=== PATIENT | male | born 1960 | race Caucasian/White ===

== ENCOUNTER 2017-10-12 11:37 | Day surgery (SDC) | payer BC ==
[~2017-10-12] VITALS: Ht 170.2 cm; Wt 72.1 kg
[~2017-10-12 11:37] MED LIST: BENADRYL25 MG PO; COMBIVENT RESPIM4 GM INH; FLUOCINOLONE AC15 G2 TOP; IBUPROFEN200 M1 PO; LEVOFLOXACIN750 MG PO; NYQUIL D COLD295 ML PO; PREDNISONE20 MG PO; PROVENTIL HFA6.7 GM INH; ZYRTEC10 MG PO
[2017-10-12] MEDS ORDERED: VITAMIN D32000 UNI1 PO (11:58)
[2017-10-12] MEDS ORDERED: LISINOPRIL-HCT1 EAC1 PO (11:58)
[2017-10-12] MEDS ORDERED: VITAMIN A8000 UNIT PO (11:59)
--- NOTE | 2017-10-12 16:16 | NUR ---
PT HAS REC'D WARMBLANKET AND UPDATED HRLY DURING PREOP. IV PATENT. STATES OK WITH WAIT. FAMILY IN ROOM.
--- NOTE | 2017-10-13 22:04 | OR ---
[facility] [address], [place] [address] Signed DATE OF OPERATION: 10/12/2017 SURGEON: Aminta Orozco MD PREOPERATIVE DIAGNOSIS: Known chronic hepatitis C and cirrhosis, occasional dysphagia and epigastric pain. POSTOPERATIVE DIAGNOSES: 1. Esophageal and proximal gastric varices. 2. Prepyloric small ulceration. 3. Duodenal erosions. 4. Low-grade stricture of distal esophagus. PROCEDURE: Esophagogastroduodenoscopy with biopsy. ANESTHESIA: Intravenous sedation fentanyl 100 mcg, Versed 4 mg. INDICATION: This 57-year-old man is known to have chronic hepatitis C, as well as cirrhosis, and occasional dysphagia. He is a patient of Dr. Wilberto Mata at the [facility], as well as Vicente DE LA TORRE locally. He is under consideration for treatment for hepatitis C. Upper endoscopy was requested to assess the extent of possible portal hypertension. Specifically to assess for varices. The patient additionally has some occasional dysphagia, but no actual reflux symptoms. He is admitted at this time to undergo upper endoscopy. He understands the risks of bleeding, infection, and perforation. FINDINGS: The patient had esophageal varices, considered likely grade 3. This included proximal gastric varices. He had no evidence of bleeding from that. There was a low-grade stricture of the distal esophagus, likely reflux related. Additionally, he had a pre-pyloric small ulcer and duodenal erosions. CLOtest was negative 15 minutes post procedure. There was no sign of large hiatal hernia by any means. The flap valve was somewhat poor, however. DESCRIPTION OF PROCEDURE: The patient was brought to the endoscopy suite, given topical Hurricaine spray, hypopharyngeal anesthesia and placed in lateral decubitus position. Given intravenous Electronically Signed By: AMINTA OROZCO MD 10/13/17 2204 PATIENT NAME: DARCI BEAULIEU OPERATIVE REPORT DATE OF : 64 REPORT #: [id number] PHYSICIAN: AMINTA OROZCO MD PCP: VICENTE LUIS REPORT IS CONFIDENTIAL AND NOT TO BE RELEASED WITHOUT AUTHORIZATION [facility] [address], [place] [address] Signed sedation to a point of slurred speech and nystagmus with full cardiopulmonary monitoring. The Olympus video upper endoscope was passed in the hypopharynx. The vocal cords were normal. The scope was advanced to the esophagus. [place] down the esophagus serpiginous varices were noted. There were not occluding the lumen by any means, but definitely extensive and progressively more so toward the esophagus. The scope was passed into the stomach, which was insufflated with air. There was no sign of bile and certainly no sign of blood. Excess gastric juices were suctioned free. The rugal folds appeared normal. Scope was advanced to the antrum and pylorus appeared normal. There was no prepyloric abnormality initially seen, but with further observation, a small prepyloric ulcer was seen. It was not deep. It was mostly edematous and with a small canker sore like appearance. The scope was passed through the pylorus into the duodenum. Duodenum had some mild edema, but no sign of ulcer, but there were erosive changes in the bulbar portion. Biopsies were taken of the third and bulbar portions. The scope was withdrawn to the antrum where biopsies were obtained. Retroflexed view was undertaken showing proximal gastric varices. There was no sign of large hiatal hernia, however. The scope was withdrawn to the distal esophagus and a low-grade stricture was noted. There was no sign of Chen's epithelium. Slightly more proximal to this were serpiginous congested esophageal varices, which diminished in size upon withdrawal of scope. Obviously no biopsies of the esophagus would be obtained in this setting. The scope was removed. The patient was taken to recovery room in good condition conclusion. CONCLUDING DIAGNOSES: 1. Grade 3 esophageal varices including proximal gastric varices. 2. Prepyloric ulceration. 3. Low-grade distal esophageal stricture, likely reflux related. PLAN: We will recommend Prilosec 20 mg p.o. daily. We will see him back in a month or so in the office and review his pathology report and so on. He will return additionally to the ongoing care of Vicente DE LA TORRE, and Wilberto Mata DO in the [facility]. MD SG Hudson/DHARAL /[id number] Electronically Signed By: AMINTA OROZCO MD 10/13/17 2204 PATIENT NAME: DARCI BEAULIEU OPERATIVE REPORT DATE OF : 64 REPORT #: [id number] PHYSICIAN: AMINTA OROZCO MD PCP: VICENTE LUIS REPORT IS CONFIDENTIAL AND NOT TO BE RELEASED WITHOUT AUTHORIZATION [address] [address] Signed cc: WIL Fuller DO Copies: VICENTE LUIS BRIAN J DO ~ Electronically Signed By: AMINTA OROZCO MD 10/13/17 2204 PATIENT NAME: DARCI BEAULIEU OPERATIVE REPORT DATE OF : 64 REPORT #: [id number] PHYSICIAN: AMINTA OROZCO MD PCP: VICENTE LUIS REPORT IS CONFIDENTIAL AND NOT TO BE RELEASED WITHOUT AUTHORIZATION
== END 2017-10-12 17:40 | disposition home or self-care (01) ==
LOC: OPS 11:37 → DS 11:37 → OPS 13:00 → DS 13:00 → OPS 14:00
PROVIDERS: Surgery
PROC: 0DB78ZX Excision of Stomach, Pylorus, Via Natural or Artificial Opening Endoscopic, Diagnostic (ICD-10-PCS; 2017-10-12)
PROC: 0DB98ZX Excision of Duodenum, Via Natural or Artificial Opening Endoscopic, Diagnostic (ICD-10-PCS; principal; 2017-10-12 14:00)
DX: K25.9 Gastric ulcer, unspecified as acute or chronic, without hemorrhage or perforation (principal); K29.80 Duodenitis without bleeding; K74.60 Unspecified cirrhosis of liver; K22.2 Esophageal obstruction; I85.10 Secondary esophageal varices without bleeding; B18.2 Chronic viral hepatitis C; I10 Essential (primary) hypertension; F19.21 Other psychoactive substance dependence, in remission; L81.8 Other specified disorders of pigmentation; Z79.899 Other long term (current) drug therapy; Z87.891 Personal history of nicotine dependence
CPT/HCPCS: 99153; G0500; J2250; J3010

== ENCOUNTER 2020-10-27 19:22 | Emergency (ER) | payer BC ==
[~2020-10-27] VITALS: Ht 170.2 cm; Wt 82.5 kg
[~2020-10-27 19:22] MED LIST changes: +LISINOPRIL-HCT1 EAC1 PO; +VITAMIN A8000 UNIT PO; +VITAMIN D32000 UNI1 PO
[2020-10-27] MEDS ORDERED: NAPROXEN500 MG PO (19:42)
[2020-10-27] MEDS ORDERED: AMLODIPINE BESYL5 MG PO (19:42)
[2020-10-27] MEDS ORDERED: PRAVASTATIN SOD20 MG PO (19:43)
== END 2020-10-27 21:38 | disposition home or self-care (01) ==
LOC: ED 19:22
DX: F10.129 Alcohol abuse with intoxication, unspecified (principal); I10 Essential (primary) hypertension; D75.89 Other specified diseases of blood and blood-forming organs; R74.01 Elevation of levels of liver transaminase levels; Z87.891 Personal history of nicotine dependence; Z79.899 Other long term (current) drug therapy; Y90.8 Blood alcohol level of 240 mg/100 ml or more
CPT/HCPCS: 80053; 81001; 85025; 99284; G0480

== ENCOUNTER 2021-05-23 01:42 | Inpatient (IN) | payer BC ==
[~2021-05-23] VITALS: Ht 170.2 cm; Wt 83.9 kg
[~2021-05-23 01:42] MED LIST changes: +AMLODIPINE BESYL5 MG PO; +NAPROXEN500 MG PO; +PRAVASTATIN SOD20 MG PO
--- NOTE | 2021-05-23 04:07 | NUR ---
PT ARRIVED TO THE FLOOR IN NO ACUTE DISTRESS. PT REPORTS FEELING BETTER AFTER HAVING 2 UNITS OF BLOOD . PT REMAINS TACHICARDIC IN THE 114, BP 137/73. PT RESP EVEN AND UNLABORED. DENIES ANY ACUTE DISTRESS. ORIENTED TO ROOM AND EDUCATED ON THE IMPORTANCE OF USING CALL LIGHT DT LINES. PT VERBALIZED UNDERSTANDING. WILL CONTINUE TO MONITOR.
--- NOTE | 2021-05-23 06:05 | NUR ---
INFORMED PT THAT HE HAS ANOTHER ORDER FOR PRBC. PT AGREEABLE TO ORDER. PT NAUSEA AND VOMITING. EMESIS BAG IN HAND. STARTED BLOOD AT 0610 NO S/S XOF ANY REACTIONS AT THIS TIME. RESP EVFEN AND UNLABORED. CALL LIGHT WITHIN REACH.
--- NOTE | 2021-05-23 07:31 | NUR ---
IN PATIENT'S ROOM QUICKLY DUE TO HIM VOMITING. PRN ZOFRAN GIVEN THROUGH CENTRAL LINE. PT HAD SMALL EMESIS. HR UP TO 130s DURING THIS. PT NOW RESTING ON LEFT SIDE IN BED. BLOOD ADMINISTERING AT 150 ML/HR INTO CENTRAL LINE IN RIGHT NECK IJ III. LAST BP 135/88. HR NOW 100s WHILE RESTING. NS ALSO INFUSING 125 ML/HR AT THIS TIME. CALL LIGHT WITHIN REACH. WILL CONTINUE TO MONITOR.
--- NOTE | 2021-05-23 07:50 | NUR ---
DR. GONZALEZ IN ROOM TO SEE PATIENT. PT RECEIVING 3RD UNIT OF PRBC AT THIS TIME.
[2021-05-23] MEDS ORDERED: ASPIRIN81 MG PO (07:57)
[2021-05-23] MEDS ORDERED: IBUPROFEN200 M1 PO (07:58)
--- NOTE | 2021-05-23 08:34 | NUR ---
PATIENT TO RECEIVE 4TH UNIT OF PRBCs, 1 UNIT OF FFP, AND 1 UNIT OF PLATELETS.
--- NOTE | 2021-05-23 09:54 | NUR ---
PATIENT TAKEN DOWN TO GI SUITE FOR UPPER ENDOSCOPY AT 0952. PT STARTED ON UNIT OF FFP AT 108 ML/HR FOR 30 ML, WHICH WILL TAKE 15 MINUTES, CONNECTED TO TRIPLE LUMEN CENTRAL LINE. PT STILL RECEIVING 4TH UNIT OF PRBCs. CBC DUE AT 1200.
--- NOTE | 2021-05-23 09:59 | NUR ---
CENTRAL LINE WAS NOTED TO BE TOO FAR ADVANCED ON CHEST XRAY PER DR. ROTH. REQUESTED BY HIM TO PULL BACK CENTRAL LINE APPROX 3 CM. SUTURE HAD TO BE REMOVED FOR THIS TO HAPPEN, AND THEN IT WAS PULLED BACK 3 CM, AND RESECURED WITH A STAT LOCK, AND NEW CENTRAL LINE DRESSING WAS APPLIED. CHEST XRAY WAS DONE AND DR. ROTH VISUALIZES AT THE BEDSIDE.
--- NOTE | 2021-05-23 10:34 | NUR ---
PATIENT RETURNS FROM UPPER ENDOSCOPY AT 1020 WITH ENGINEER THIRD ASSISTANT AND PACU STAFF. 4TH UNIT OF PRBCs FINISHED AT 1015. FFP IS NOW INFUSING AND RATE INCREASED TO 200 ML/HR. PT STARTING TO ITCH, AND ORDER REC'D FROM ENGINEER THIRD ASSISTANT TO GIVE 25-50 MG X 1 FOR ITCHING.
--- NOTE | 2021-05-23 11:06 | NUR ---
PATIENT RETURNED FROM GI SCOPE AND STARTED TO FAIRLY QUICKLY DEVELOP ITCHING. THIS ITCHING BECAME SYSTEMIC, WITH REDNESS APPEARING SIGNIFICATNLY THROUGHOUT BODY, ON TORSO, ON LEGS, WITH HIVES APPREARING ALSO. PT DENIES HAVING ANY TROUBLE BREATHING. SP02 IS 97% ON ROOM AIR. PT IS AWAKE AND CONVERSING WITH STAFF. TEMP IS 98.6 AT THIS TIME. FFP WAS STOPPED WHEN ITCHING BECAME SEVERE. LUZ MARIA BAUER WAS STILL IN UNIT AND ORDER REC'D TO GIVE 25-50 MG IV BENADRYL. THIS WAS GIVEN- SEE EMAR. DR. ROTH THEN IN ROOM AND TALKING WITH RESULTS OF GI SCOPE TO PT'S SON AND PATIENT. ITCHING RESUMED AND WAS OF STILL SEVERE GRADE, AND DR. ROTH GAVE VERBAL ORDER FOR SOLUMEDROL, 80 MG IV TO BE GIVEN NOW. PT'S SON REMAINS IN ROOM. WILL CONTINUE TO MONITOR.
--- NOTE | 2021-05-23 11:21 | NUR ---
DR. GONZALEZ IN ROOM TO SEE PATIENT AT THIS TIME.
--- NOTE | 2021-05-23 11:45 | NUR ---
DISCUSSED WITH LAB THE PROCEDURES TO FOLLOW REGARDING TESTING THE BLOOD PRODUCTS THAT PATIENT RECEIVED TO RULE OUT TRANSFUSION REACTION. LAB REQUESTING A PINK, YELLOW, AND LAVENDAR TOP VIAL OF BLOOD, WELL A URINE SAMPLE.WILL COLLECT THESE THINGS WHEN ABLE TO. 1200 SCHEDULED TIME OF BLOOD DRAW TO BE COLLECTED NOW.
--- NOTE | 2021-05-23 13:25 | NUR ---
Spoke with pt and his son, Nik and Bertha. Pt lives alone in house in [place]. 2 steps, no issues getting in or out of house. Pt currently works at [employer]. He is drinking prep for a colonoscopy. He and son, Nik, have just completed a POA with a traveling notary. Pt denies needs at home. Not feeling well and is nauseated from prep. Salty follow up with pt tomorrow. Copy of POA made for medical records.
--- NOTE | 2021-05-23 13:43 | NUR ---
PATIENT UP TO BSC TO HAVE A BM AND VOID URGENTLY . PT HAS STARTED BOWEL PREP OF MIRALAX BUT DOES REPORT NAUSEA PERSISTING. PT HAD SMALL EMESIS WHILE UP ON COMMODE, WHICH REMAINS CLEAR/LIGHT GREEN IN COLOR WITH NO SIGNS OF BLOOD. PT VOIDS AND HAS BURGUNGY CLOTTY STOOL WITH FOUL SMELL. PT DOES ENDORSE THAT HE FEELS A LITTLE WEAKER THAN BEFORE. CBC VALUES GONE OVER WITH PATIENT AND HIS SON. BP ELEVATED 172/99. DR. GONZALEZ CALLED AND UDPATED. ORDERS REC'D TO GIVE 10 MG IV LASIX, GIVE 50 MG IV BENADRYL ONCE NOW BEFORE PLATELETS, AND GIVE THE UNIT OF PLATELETS THAT IS READY FOR HIM. WILL CONTINUE TO MONITOR CLOSELY. CALL LIGHT WITHIN REACH.
--- NOTE | 2021-05-23 13:55 | NUR ---
PLATLETES HUNG PER ORDERS. BENADRYL 50 MG GIVEN PRIOR TO PLATLETS. LASIX 10 MG IV ALSO GIVEN PER ORDERS.
--- NOTE | 2021-05-23 14:47 | NUR ---
VITALS CHARTED. FAMILY IN ROOM. FAMILY ASKING QUESTIONS REGUARDING THE AMOUT OF BLOOD PATIENT HAS LOST AND IS RECEIVING, RN NOTIFIED AND WILL ADDRESS QUESTIONS WITH FAMILY. CALL LIGHT IN EASY REACH
--- NOTE | 2021-05-23 17:27 | NUR ---
PATIENT CONTINUES TO BE UP AND DOWN TO COMMODE FREQUENTLY. PT HAS ALMOST FINISHED 2ND BOTTLE OF MIRALAX BOWEL PREP. CBC DUE AT 1800 ALONG WITH MAG LEVEL. CONTINUE TO MONITOR.
--- NOTE | 2021-05-23 19:30 | NUR ---
RECEIVED REPORTS FROM DAY SHIFT RN . PT LAYING IN BED IN NO ACUTE DISTRESS. REPORTS FEELING BETTER . DENIES ANY PAIN AT THIS TIME. RESP EVEN AND UNLABORED. CALL LIGHT WITHIN REACH. VISITING WITH SON WILL CONTINUE TO MONITOR.
--- NOTE | 2021-05-23 20:37 | NUR ---
pt needed to have a bm. pt has finished drinking his bowel prep. pt verbalized understanding that he cannot have anything else by mouth after midnight because he has a procedure in the morning. pt up to commode with stand by assist, had about 200ml of stool mixed with 100ml urine. pt able to get self back to bed without assistance.
--- NOTE | 2021-05-23 20:59 | EKG ---
[facility] [address] [facility] [place], [place] [address] Signed Sinus tachycardia Otherwise normal ECG No previous ECGs available Confirmed by MAIRA GONZALEZ MD ([id number]) on 05/23/2021 8:59:00 PM Electronically Signed By: MAIRA GONZALEZ MD 05/23/212058 PATIENT NAME: DARCI BEAULIEU Electrocardiogram DATE OF : 64 PHYSICIAN: MAIRA GONZALEZ MD REPORT #: [id number] REPORT IS CONFIDENTIAL AND NOT TO BE RELEASED WITHOUT AUTHORIZATION
--- NOTE | 2021-05-23 21:32 | NUR ---
PT'S SON STATES PT NEEDS TO GO TO THE BATHROOM PT TRYING TO GET OUT OF BE HIMSELF. THIS RN IN ROOM AND ASSISTED PT TO BEDSIDE COMMODE. PT STATES "I THINKI GOT IT EVERY WHERE I FELT IT" HIS ATTENDS ARE SLIGHTLY WET FROM URIAND SOME LIQUID STOOL BUT HIS BEDDING IS CLEAN. EMPTIED COMMODE 100 ML OF URINE MIXED WITH SOME LIQUID STOOL. DOES NOT APPEAR TO BE RED IN NATURE. PT ABLE TO WIPE SLEF AND ASSISTED HIM WITH NEW ATTENDS, PT BACK TO BED. SON IN ROOM
--- NOTE | 2021-05-23 23:10 | NUR ---
ASSISTED PT TO BSC VIA SBA
--- NOTE | 2021-05-24 02:00 | NUR ---
PT SLEEPING IN BED IN NO ACUTE DISTRESS. PT RESP EVEN AND UNLABORED. VSS CALL LIGHT WITHIN REACH WILL CONTINUE TO MONITOR/
--- NOTE | 2021-05-24 04:00 | NUR ---
PT SLEEPING IN BED IN NO ACUTE DISTRESS. VSS RESP EVEN AND UNLABORED. CALL LIGHT WITHIN REACH WILL CONTINUE TO MONITOR.
--- NOTE | 2021-05-24 06:01 | CONS ---
[facility] [address], [place] [address] Signed DATE OF CONSULTATION: 05/23/2021 CHIEF COMPLAINT: Bloody diarrhea. HISTORY OF PRESENT ILLNESS: Darci is a 60-year-old gentleman, who is known to have a long history of daily alcohol use and hepatitis C. In 2018, he underwent his upper endoscopy and was found to have proximal gastric and distal esophageal varices probably grade 3 with a shallow pre-pyloric ulcer and possibly a slight distal esophageal stricture. This was done by Dr. Jones. He was then treated by Dr. Wilberto Mata at our [facility] for his hepatitis C virus, he said that was cured. He tells me he has never been to an actual liver specialist/art critic or dispensing operator. In the meantime, he continues to work at a local [employer]. He is using significant amounts of daily aspirin as well as ibuprofen. He is also drinking at least 324-ounce beers every day. He does not smoke. He had at least three days of dark stool and then quite a bit of voluminous bloody diarrhea. He came to the emergency room for evaluation. He received tranexamic acid along with 4 units of packed red blood cells and right IJ was placed by our ER physician. The followup chest x-ray shows the tip of the right IJ in the atrium, it has not been pulled back currently. Therefore, we are going to do that momentarily and repeat the chest x-ray. He has been admitted to the Internal Medicine Service in the ICU. He has vomited several times here in the ICU and thankfully it has all been clear fluid. Initially, he was hypotensive, but responded well to his IV fluids and blood transfusions. He is still tachycardic, but overall seems to be hemodynamically stable. Although, his albumin is little low, his liver function test and INR really are particularly elevated. Although, he did have alcohol on board when he got here. PAST MEDICAL HISTORY: Diverticulosis, small hiatal hernia, cirrhosis with esophageal varices, hypertension, seasonal allergies, and prior history of hepatitis C virus. PAST SURGICAL HISTORY: Includes facial plastic surgeries, tonsils, umbilical hernia x2 as a young baby, upper endoscopy in [address] Jones showing the shallow pre-pyloric ulcer along with esophageal and proximal gastric varices and possibly a small distal esophageal stricture. SOCIAL HISTORY: He does not smoke, but he drinks at least 324 ounce beers a day. His son Mj is at [phone] and he has a daughter who was just on the phone. Actually, Jennifer is his nurse practitioner. He prefers the [facility]. Dr. Wilberto Mata, he is the infectious disease doctor, who treated his hepatitis C virus in 2018. Electronically Signed By: TRENT ROTH MD 05/24/21 0601 PATIENT NAME: DARCI BEAULIEU CONSULTATION DATE OF : 64 REPORT #: [id number] PHYSICIAN: TRENT ROTH MD PCP: KEYANNA KIM MD REPORT IS CONFIDENTIAL AND NOT TO BE RELEASED WITHOUT AUTHORIZATION [address] [address] Signed FAMILY HISTORY: None. REVIEW OF SYSTEMS: None. ALLERGIES: None. MEDICATIONS: 1. Lisinopril/hydrochlorothiazide (20/25) one tablet p.o. daily. 2. Amlodipine 5 mg p.o. daily. PHYSICAL EXAMINATION: VITAL SIGNS: Blood pressure 139/78, heart rate 106, respiratory rate 11, and temperature is 98.1, and he is 97% on 2 L nasal cannula. He is 5 feet 7 inches, 83 kg. GENERAL: Darci is a 60-year-old gentleman, lying supine in his ICU bed. He does not appear jaundiced. He is little thin with a protuberant abdomen. LUNGS: Generally clear to auscultation bilaterally. HEART: Tachycardic, without murmurs. ABDOMEN: Moderately protuberant, but generally soft and nontender. I cannot appreciate the liver edge. He has surgical scars around the umbilicus with a possible small recurrent umbilical hernia. RECTAL: Not repeated. LABORATORY DATA: His initial white blood cell count was 11.6, it is now 8.6; his initial hemoglobin was 7.8, it is now 8.3, although I am not sure how many units he received in between; his mean cell volume is 105, it is now 98; and platelets were 221, down to 145. His BUN is 15, his creatinine is 1.4, and glucose 173. COVID negative. INR is 1.17. Total bilirubin 0.6, AST 87, ALT 36, alkaline phosphatase 196, albumin is 2.4. His alcohol was 276. Calcium is 7.7. RADIOGRAPHIC STUDIES: EKG showed sinus tachycardia. The chest x-rays reviewed and sure enough the tip of the central venous catheter is in his right atrium, no obvious pneumothorax. CT scan of abdomen and pelvis shows a nodular liver with multiple calcified gallstones and a small hiatal hernia with some sigmoid diverticulosis. His spleen does not appear particularly enlarged, no comment on varices. ASSESSMENT AND PLAN: Darci is a 60-year-old gentleman, who presents with gastrointestinal bleed anemia with aspirin and ibuprofen on board along with a known history of cirrhosis and esophageal and proximal gastric varices. I reviewed with Darci the above findings. I explained to Electronically Signed By: TRENT ROTH MD 05/24/21 0601 PATIENT NAME: DARCI BEAULIEU CONSULTATION DATE OF : 64 REPORT #: [id number] PHYSICIAN: TRENT ROTH MD PCP: KEYANNA KIM MD REPORT IS CONFIDENTIAL AND NOT TO BE RELEASED WITHOUT AUTHORIZATION [facility] [address], [place] [address] Signed him that this is a very serious situation. He is going to receive additional packed red blood cells and fresh frozen plasma. We have ordered platelets, but it will take 6-8 hours to get here. There is a possibility he would need to be transferred to our tertiary referral center. He told me he would not drink following this episode. I reviewed upper endoscopy with him, he remembers that quite well. He understands there is risk including, but not limited to gas bloating, crampy abdominal pain, bleeding, perforation requiring surgery, and missed diagnosis. We have also reviewed the idea of Interventional Radiology and embolization of arteries. He is at very high risk for any abdominal surgeries, particularly at our small hospital. He is also aware that he really should see one of the liver specialists at our medical school to be fully evaluated and establish a baseline and establish with a dispensing operator out in [facility]. We also reviewed the idea of banding esophageal varices. He has expressed understanding, would like to proceed with this endoscopy. Trent Roth MD ALB/MODL /[id number] cc: MD Linda Cano DO Patient's Chart Copies: TRENT ROTH MD, BRIAN J DO ~ Electronically Signed By: TRENT ROTH MD 05/24/21 0601 PATIENT NAME: DARCI BEAULIEU CONSULTATION DATE OF : 64 REPORT #: [id number] PHYSICIAN: TRENT ROTH MD PCP: KEYANNA KIM MD REPORT IS CONFIDENTIAL AND NOT TO BE RELEASED WITHOUT AUTHORIZATION
--- NOTE | 2021-05-24 06:01 | OR ---
[facility] [address] [place], [place] [address] Signed DATE OF OPERATION: 05/23/2021 SURGEON: Trent Roth MD PREOPERATIVE DIAGNOSES: 1. Gastrointestinal bleed. 2. Anemia. 3. Bloody diarrhea. 4. 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 5. History of treated hepatitis C virus in 2018. 6. Daily alcohol use. POSTOPERATIVE DIAGNOSES: 1. Mild diffuse gastritis. 2. Small hiatal hernia. 3. Moderate-sized nonbleeding proximal gastric and esophageal varices up to mid esophagus. 4. Distal esophagitis. PROCEDURE: Esophagogastroduodenoscopy without biopsy. ESTIMATED BLOOD LOSS: None. INDICATIONS: Darci is a 60-year-old gentleman, who back in 2018 underwent upper endoscopy with Dr. Jones. He was said to have proximal gastric varices along with distal esophageal varices, probably grade 3. Question whether or not he had a pre-pyloric shallow ulcer. Probably, he had some decreased function to the lower esophageal sphincter, but no obvious hiatal hernia. He followed up with Dr. Wilberto Hooker for treatment of his hepatitis C virus, that is now undetectable. However, he says he has never seen a liver specialist and has not gone back for any banding. He presented to the emergency room with several days of dark stool, followed by bloody diarrhea. He has been using a lot of aspirin and ibuprofen because of various aches and pains. In the emergency room, he received tranexamic acid along with 4 units of packed red blood cells and right internal jugular catheter was placed per the ER doctor, that was in the right atrium, so it has been pulled back 3 cm and appears to be in much better position. He has been in the ICU since around 0300 and 0330 this morning. Internal Medicine Service has been working to resuscitate him. He has vomited a few times, mainly his clear gastric fluid. He seems Electronically Signed By: TRENT ROTH MD 05/24/21 0601 PATIENT NAME: DARCI BEAULIEU OPERATIVE REPORT DATE OF : 64 REPORT #: [id number] PHYSICIAN: TRENT ROTH MD PCP: KEYANNA KIM MD REPORT IS CONFIDENTIAL AND NOT TO BE RELEASED WITHOUT AUTHORIZATION [facility] [address] [place] [id number] Signed to have a fairly sensitive gag reflex. I have been asked to see him as a general surgeon on-call. The CT scan again confirmed that he has a nodular liver with multiple gallstones and a small hiatal hernia. He does have diverticulosis in his colon, it does not appear to be severe. Liver function tests were not particularly elevated. Albumin is a little bit low at 2.4 and his INR is 1.17. His alcohol level is 276. EKG showed sinus tachycardia. BUN was not elevated at 15, but the creatinine is 1.8, mean cell volume was 105 with hemoglobin of 7.8, it is now 8.3, I am not sure how many units of blood he received, in between there was blood draws. This morning, I received a phone call from our Internal Medicine Service, I have left my office and went straight to the ICU. Darci seems to be a little anxious, but otherwise seems to be hemodynamically stable other than some mild sinus tachycardia. The heart is unremarkable without murmurs and the abdomen is moderately protuberant without fluid wave and I cannot appreciate the liver edge. I explained to Darci we needed to repeat the upper endoscopy expeditiously. If that were negative, we will consider a bowel prep and colonoscopy the next day. He has never had a previous colonoscopy. I reviewed with him upper endoscopy in detail. We reviewed cirrhosis of liver and varices along with an alcohol intake and the aspirin and ibuprofen. I made him aware of esophageal variceal banding. He is aware that is not available at our hospital. In the meantime, he is also receiving some plasma. Platelets have been ordered as well, that will take 6-8 hours to get here. He understands he is in a very serious situation. He did give me permission to talk to his son, Mj, who is aware of the situation. He said his own mother just in March of this year from similar conditions. Darci understands there is risk including, but not limited to gas bloating, crampy abdominal pain, bleeding, perforation requiring surgery, and missed diagnosis. He had expressed understanding and wished to proceed. Given the significant acuity of his situation, we asked for monitored anesthesia care. He had expressed understanding and wished to proceed. DESCRIPTION OF PROCEDURE: Darci was taken into our endoscopy suite and placed in the supine semi-recumbent position. He was placed under monitored anesthesia care with propofol per our nurse window shade cutter. His bottom tooth was loose, but thankfully that remained in place. We did utilize a bite block. The adult gastroscope was introduced and advanced into the third portion of the duodenum. The duodenum and pyloric channel were unremarkable. The stomach showed mild diffuse erythematous changes. We did not perform any biopsies. He did have a CLOtest in 2018, but I am not aware of that result currently. Upon retroflexion of scope, he does have a small hiatal hernia. I could see the proximal gastric varices. There were no blood wipes whatsoever in the stomach or duodenum. The scope was withdrawn up through the area of the GE junction, which was compliant without any obvious stricture. He clearly has moderate-sized varices of the esophagus extending up to his mid esophagus. The proximal esophagus unremarkable. Just above the Z-line, he has a couple areas of irritation from his esophagitis, this sounds very similar to what he had in 2018, when I can tell he is not on any medication for stomach. After Electronically Signed By: TRENT ROTH MD 05/24/21 06 PATIENT NAME: DARCI BEAULIEU OPERATIVE REPORT DATE OF : 64 REPORT #: [id number] PHYSICIAN: TRENT ROTH MD PCP: KEYANNA KIM MD REPORT IS CONFIDENTIAL AND NOT TO BE RELEASED WITHOUT AUTHORIZATION [facility] [address] [place] [id number] Signed this, the gas was suctioned out and the gastroscope removed. Darci tolerated the procedure quite well. RECOMMENDATIONS: Darci will be returned to his ICU bed on the Internal Medicine service. Hopefully, he can tolerate clear liquids today and along with his bowel prep. We will plan on doing a colonoscopy tomorrow. Trent Roth MD ALB/MODL /[id number] cc: Patient's Chart DO Linda Mayo MD Copies: WILBERTO HOOKER ANDREW L MD ~ Electronically Signed By: TRENT ROTH MD 05/24/21 0601 PATIENT NAME: DARCI BEAULIEU ALAN OPERATIVE REPORT DATE OF : 64 REPORT #: [id number] PHYSICIAN: TRENT ROTH MD PCP: KEYANNA KIM MD REPORT IS CONFIDENTIAL AND NOT TO BE RELEASED WITHOUT AUTHORIZATION
--- NOTE | 2021-05-24 07:44 | NUR ---
VITALS AND I&OS CHARTED. RN IN FOR MORNING ASSESSMENT. CALL LIGHT IN REACH
--- NOTE | 2021-05-24 07:50 | NUR ---
PATIENT RESTING IN BED AT THIS TIME. IVF CONTINUE AT 100 ML/HR. PLAN OF CARE DISCUSSED FOR THE DAY AND PLAN MOVING FORWARD. PT WILL HAVE LOWER SCOPE TODAY LATER THIS AM. CONTINUE TO MONITOR.
--- NOTE | 2021-05-24 08:55 | NUR ---
Spoke with Benito, he will have a cspope this morning. He states he is feeling better. He is interested in Vivi visiting for his alcoholism. I will contact and schedule for an afternoon appt. so he is awake following scope.
--- NOTE | 2021-05-24 10:32 | NUR ---
PATIENT READY TO GO DOWN FOR LOWER SCOPE.
--- NOTE | 2021-05-24 11:04 | NUR ---
Called and spoke with Yen summers [facility], they will visit at 3 pm today.
--- NOTE | 2021-05-24 11:18 | NUR ---
05/24/21 1118 Nisreen Membreno NO PACU TIME CHARGED
--- NOTE | 2021-05-24 11:24 | NUR ---
PATIENT ARRIVES FROM GI SUITE AT 1115 AFTER HAVING INCREASED BLEEDING PER RECTUM AND ALSO COFFEE GROUND EMESIS FROM HIS ORAL AIRWAY PER GOLF TEACHER. LARGE MELENA WITH CLOTS CLEANED OFF OF PATIENT WHICH WEIGHED 330 G=330 ML. CBC SENT STAT. 2 UNITS TO BE GIVEN RAPIDLY AT THIS TIME.
--- NOTE | 2021-05-24 12:04 | NUR ---
BLOOD SUGAR 196, INSULIN DRIP NOT TITRATED AT THIS TIME. PT UP TO BSC AND BACK IN BED. ASSESSEMENT COMPLERTED. CALL LIGHT WITHIN REACH. WILL CONTINUE TO MONITOR.
--- NOTE | 2021-05-24 12:34 | NUR ---
PATIENT ON PHONE WITH SEVERAL FAMILY MEMBERS UPDATING THEM ON HIS RECURRENT BLEEDING. PATIENT VERY SCARED, AND ASKING VERY RELEVANT QUESTIONS REGARDING HIS CARE, HIS BLEEDING, HIS BODY. DISCUSSED WITH PATIENT PLAN OF CARE MOVING FORWARD FOR HIS TRANSFER TO ANOTHER FACILITY.
--- NOTE | 2021-05-24 12:36 | NUR ---
2ND UNIT OF PRBCs IS INFUSING AND GOING AT THIS TIME AT 500 ML/HR. PT TOLERATING WELL. FFP STARTED NOW WELL. ALL BLOOD INFUSING INTO RIGHT IJ.
--- NOTE | 2021-05-24 12:51 | NUR ---
FFP NOW INFUSING AT 250 ML/HR. 2ND UNIT OF PRBCs ALMOST FINISHED AND HAS BEEN INFUSING AT 500 ML/HR. PT HAS BEEN TOLERATING WELL W/O ANY SIGNS OF REACTION, NO ITCHING, NO REDNESS. WILL DISCUSS WITH MD DOING A CBC AFTER AND SEEING ABOUT MORE UNITS OF BLOOD IF NEEDED TO BE GIVEN. CONTINUE TO MONITOR CLOSELY.
[2021-05-24] MEDS ORDERED: PROTONIX IV40 MG IV (13:13)
--- NOTE | 2021-05-24 13:20 | NUR ---
PATIENT READY TO TRANSFER TO [facility] IN [place], ID. PT'S DAUGHTER IN [employer] IN ROOM AND TAKES PATIENT'S PERSONAL BELONGINGS WITH HER. PT FINISHING UNIT OF FFP. OTHER 2 UNITS OF BLOOD ARE NOW PREPARED TO GO WITH PATIENT TO [place]. VITALS REMAIN STABLE.
--- NOTE | 2021-05-24 14:23 | NUR ---
CHECKING ON PT-CCU STAFF INFORMED ME THAT PT IS TO BE LIFEFLIGHTED TO [facility]. WILL FOLLOW NEEDED
--- NOTE | 2021-05-24 14:53 | NUR ---
REPORT GIVEN TO NYDIA TALLEY AT [facility] IN [place]. ALL QUESTIONS ANSWERED BEST POSSIBLE.
--- NOTE | 2021-05-25 08:08 | OR ---
[facility] [address] [place], [place] [address] Signed DATE OF OPERATION: 05/24/2021 SURGEON: Trent Roth MD PREOPERATIVE DIAGNOSES: 1. GI bleed. 2. Anemia. 3. Bloody diarrhea. 4. Diverticulosis. 5. 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 POSTOPERATIVE DIAGNOSES: 1. Moderate sigmoid diverticulosis. 2. Copious amounts of red and maroon-colored blood in the left colon. 3. A small amount of hematemesis probably from his loose lower front tooth, but also some blood from his nares. PROCEDURE: Colonoscopy without biopsy up to 60 cm (blood). ESTIMATED BLOOD LOSS: None. INDICATIONS: Darci is a 60-year-old gentleman, who has a known history of cirrhosis of the liver with esophageal varices from 2018. He was treated for the hepatitis C virus by his infectious disease specialists and that is now undetectable. He has continued to drink on a daily basis at least 324 ounce beers a day. Apparently, his ex- just in March of this year from cirrhosis of her liver. Darci was having dark stool for a few days, followed by bloody diarrhea. He came to our emergency room for evaluation. In the meantime, he has received 4 units packed red blood cells, fresh frozen plasma, and a pack of platelets. He also has a right internal jugular catheter. He had undergone a CT scan. He certainly has some diverticulosis as well. We did his upper endoscopy yesterday and he indeed has some mild diffuse gastritis with the proximal gastric varices as well as a distal esophageal varices extending up into the mid esophagus. It is very similar to what he had 2018. There was no blood whatsoever in his esophagus or stomach. No recent stigmata of any bleeding in the stomach. He does have some distal esophagitis again consistent with what he had in 2018. Unfortunately, he was also taking a lot of aspirin and ibuprofen. He had responded nicely to his resuscitation yesterday and therefore went through his bowel prep and did actually quite well. This Electronically Signed By: TRENT ROTH MD 05/25/2108 PATIENT NAME: DARCI BEAULIEU OPERATIVE REPORT DATE OF : 64 REPORT #: [id number] PHYSICIAN: TRENT ROTH MD PCP: KEYANNA KIM MD REPORT IS CONFIDENTIAL AND NOT TO BE RELEASED WITHOUT AUTHORIZATION [facility] [address] [place] [id number] Signed morning, he seemed to be doing quite well when I saw him. We added him on the follow for his colonoscopy. He has never had a previous colonoscopy. I did review that with him in detail. He understands the nature of that test along with the risks including, but not limited to gas bloating, crampy abdominal pain, bleeding, perforation requiring surgery, and missed diagnosis. He also understands the need for monitored anesthesia care. He also understands this is a very serious situation that he is in, and he is quite aware that his ex- just . I have also spoken to both of his sons, Mj and Ray. He had expressed understanding and wished to proceed. PROCEDURE NOTE: Darci was taken into our endoscopy suite and placed in the left lateral decubitus position. He was given monitored anesthesia care with propofol per our nurse front desk officer. A digital rectal exam was performed and he did have a maroon-colored blood. He had good sphincter tone. His prostate is very indurated, but somewhat flat and something that might be evaluated more thoroughly in due time. The adult colonoscope had been introduced and we had to irrigate the rectum a bit and get through some of the blood. We made our way up the sigmoid colon to about 60 cm into the left colon. He does have diverticula. They were moderate in size, moderate in number, and scattered about. He had mostly maroon liquid stool with some clotted blood as well. Even with irrigation and several minutes of examining this area at 60 cm, we never could find a lumen and therefore we could not pass the scope safely any further. About that time, he had some blood around his mouth and a little bit out of his nares. We know he has a loose tooth on the bottom of his in the front mandible. There was a little bit of blood around that tooth, and we noted he was hypotensive. We therefore had to stop his propofol and let him wake up. We brought him back down to our ICU. I have spoken to the hospitalist service. Our supervisor dry cleaning is with us as well. We are going to be looking for a tertiary referral center with significant more capabilities than what we have at our [facility]. In the meantime, I will be calling his son Ray as well. Trent Roth MD ALB/DHARAL /[id number] cc: Linda Rodriguez Electronically Signed By: TRENT ROTH MD 05/25/21 0808 PATIENT NAME: DARCI BEAULIEU OPERATIVE REPORT DATE OF : 64 REPORT #: [id number] PHYSICIAN: TRENT ROTH MD PCP: KEYANNA KIM MD REPORT IS CONFIDENTIAL AND NOT TO BE RELEASED WITHOUT AUTHORIZATION [facility] [id number] [place], [place] [address] Signed MD Wilberto Cano DO Patient's Chart Copies: TRENT ROTH MD, BRIAN J DO ~ Electronically Signed By: TRENT ROTH MD 05/25/21 0808 PATIENT NAME: DARCI BEAULIEU OPERATIVE REPORT DATE OF : 64 REPORT #: [id number] PHYSICIAN: TRENT ROTH MD PCP: KEYANNA KIM MD REPORT IS CONFIDENTIAL AND NOT TO BE RELEASED WITHOUT AUTHORIZATION
== END 2021-05-24 14:15 | disposition short-term general hospital (02) | DRG 378 ==
LOC: ED 01:42 → CCU 03:48
PROVIDERS: Colon & Rectal Surgery; ADMIT Internal Medicine; ATTEND Internal Medicine
PROC: 30233N1 Transfusion of Nonautologous Red Blood Cells into Peripheral Vein, Percutaneous Approach (ICD-10-PCS; 2021-05-23)
PROC: 30233R1 Transfusion of Nonautologous Platelets into Peripheral Vein, Percutaneous Approach (ICD-10-PCS; 2021-05-23)
PROC: 05HM33Z Insertion of Infusion Device into Right Internal Jugular Vein, Percutaneous Approach (ICD-10-PCS; 2021-05-23)
PROC: B543ZZA Ultrasonography of Right Jugular Veins, Guidance (ICD-10-PCS; 2021-05-23)
PROC: 0DJ08ZZ Inspection of Upper Intestinal Tract, Via Natural or Artificial Opening Endoscopic (ICD-10-PCS; 2021-05-23)
PROC: 30233K1 Transfusion of Nonautologous Frozen Plasma into Peripheral Vein, Percutaneous Approach (ICD-10-PCS; principal; 2021-05-23 09:16)
PROC: 0DJD8ZZ Inspection of Lower Intestinal Tract, Via Natural or Artificial Opening Endoscopic (ICD-10-PCS; 2021-05-24)
DX: K92.2 Gastrointestinal hemorrhage, unspecified (principal); D62 Acute posthemorrhagic anemia; I95.9 Hypotension, unspecified; I10 Essential (primary) hypertension; J30.2 Other seasonal allergic rhinitis; K70.30 Alcoholic cirrhosis of liver without ascites; I85.10 Secondary esophageal varices without bleeding; D64.9 Anemia, unspecified; F10.10 Alcohol abuse, uncomplicated; K29.70 Gastritis, unspecified, without bleeding; K57.90 Diverticulosis of intestine, part unspecified, without perforation or abscess without bleeding; Z20.822 Contact with and (suspected) exposure to COVID-19; K44.9 Diaphragmatic hernia without obstruction or gangrene; Y90.8 Blood alcohol level of 240 mg/100 ml or more; K20.80 Other esophagitis without bleeding; M79.18 Myalgia, other site; L50.0 Allergic urticaria; Z87.891 Personal history of nicotine dependence; Z98.890 Other specified postprocedural states; Z79.899 Other long term (current) drug therapy; Z90.89 Acquired absence of other organs; Z79.82 Long term (current) use of aspirin
CPT/HCPCS: 36415; 36430; 71045; 74177; 80053; 83735; 85025; 85610; 86850; 86900; 86901; 86922; 93005; 93010; 96375; 99285-25; C1894; C9113; C9803; G0480; J1200; J1940; J2001; J2250; J2370; J2405; J2704; J2920; J2930; J3010; J3475; J7030; J7121; P9016; P9035; P9059; Q9967; U0003

== ENCOUNTER 2021-10-21 01:20 | Emergency (ER) | payer OTHER ==
[~2021-10-21] VITALS: Ht 170.2 cm; Wt 83.5 kg
[~2021-10-21 01:20] MED LIST changes: +ASPIRIN81 MG PO; +PROTONIX IV40 MG IV
[2021-10-21] MEDS ORDERED: ESCITALOPRAM OX20 MG PO ×2 (01:39→01:40)
[2021-10-21] MEDS ORDERED: CLONIDINE HCL0.1 MG PO (01:39)
[2021-10-21] MEDS ORDERED: LISINOPRIL-HCT1 EAC1 PO (01:39)
[2021-10-21] MEDS ORDERED: OMEPRAZOLE20 MG PO (01:40)
== END 2021-10-21 02:55 | disposition home or self-care (01) ==
LOC: ED 01:20
DX: F10.10 Alcohol abuse, uncomplicated (principal); S00.83XA Contusion of other part of head, initial encounter; D64.9 Anemia, unspecified; R74.8 Abnormal levels of other serum enzymes; I10 Essential (primary) hypertension; Z87.891 Personal history of nicotine dependence; W19.XXXA Unspecified fall, initial encounter
CPT/HCPCS: 36415; 70486; 80053; 85025; 85060; 85610; 96360; 99284-25; J7030